=== PATIENT | male | born 1965 | race Caucasian/White ===

== ENCOUNTER 2017-01-30 14:00 | Emergency (ER) | payer MEDICAID ==
[~2017-01-30] VITALS: Ht 180.3 cm; Wt 78.5 kg
[2017-01-30 14:10] VITALS: Ht 180.3 cm; Wt 78.5 kg
[2017-01-30] MEDS ORDERED: predniSONE 20 MG TAB PO ONE (16:00)
[2017-01-30] MEDS ORDERED: ALBUTEROL 0.083% (NEB) 2.5 MG/3 ML AMP HHN STA (16:00)
[2017-01-30] MEDS ORDERED: ALBU18HF INHALATION (16:24)
[2017-01-30] MEDS ORDERED: PRED20TA PO (16:24)
--- NOTE | 2017-01-30 16:27 | ERD ---
ER Documentation Chief Complaint Date/Time DATE: 01/30/17 TIME: 16:25 Chief Complaint cough and sob has asthma has been using inhaler but is working HPI This 51-year-old male complains of wheezing for last 2 days and coughing. He is a history of asthma and is using his inhaler. He may have had a URI when symptoms began. He denies any fevers or productive mucus, chest pain, vomiting, abdominal pain. ROS All systems reviewed and are negative except as per history of present illness. Medications Home Meds Active Scripts Albuterol Sulfate* (Ventolin HFA*) 18 Gm Hfa.aer.ad, 2 PUFF INHALATION Q4H, #1 INHALER Prov:MIRANDA CORREA MD 01/30/17 Prednisone* (Prednisone*) 20 Mg Tab, 40 MG PO DAILY for 4 Days, TAB Start 01/31/2017 Prov:MIRANDA CORREA MD 01/30/17 Allergies Allergies: Coded Allergies: No Known Drug Allergies (Verified Allergy, 10/29/12) PMhx/Soc History of Surgery: No Anesthesia Reaction: No Hx Neurological Disorder: No Hx Respiratory Disorders: Yes (ASTHMA) Hx Cardiac Disorders: No Hx Psychiatric Problems: No Hx Miscellaneous Medical Probl: No Hx Alcohol Use: No Hx Substance Use: No Hx Tobacco Use: No Physical Exam Vitals Vital Signs Date Time Temp Pulse Resp B/P Pulse Ox O2 Delivery O2 Flow Rate FiO2 01/30/17 16:11 72 18 97 21 01/30/17 14:10 97.2 78 20 134/84 97 Physical Exam Const: [] Alert, not ill-appearing. Head: Atraumatic Eyes: Normal Conjunctiva ENT: Normal External Ears, Nose and Mouth. TMs and oropharynx normal. Neck: Full range of motion..~ No meningismus. Resp: Clear to auscultation bilaterally. Slight wheezy cough without significant wheeze at rest and no Rales or retractions. Cardio: Regular rate and rhythm, no murmurs Abd: Soft, non tender, non distended. Normal bowel sounds Skin: No petechiae or rashes Back: No midline or flank tenderness Ext: No cyanosis, or edema Neur: Awake and alert Psych: Normal Mood and Affect Results 24 hrs Current Medications Medications (Trade) Dose Ordered Sig/Mazin Route PRN Reason Start Time Stop Time Status Last Admin Dose Admin Prednisone (Prednisone) 60 mg ONCE ONCE PO 01/30/17 16:00 01/30/17 16:01 DC Albuterol (Proventil 0.083% (Neb)) 5 mg ONCE STAT HHN 01/30/17 16:00 01/30/17 16:01 DC 01/30/17 16:11 Procedures/MDM Patient is given albuterol 1 and prednisone 60 modems and mouth. Patient isn't URI symptoms in the setting of history of asthma without signs of hypoxemia, respiratory distress, signs of pneumonia, or additional complications. He'll be treated with a short course prednisone and continuation of albuterol.The patient was stable with no new complaints during the ER course. Clinically, there is no current evidence to suggest meningitis, sepsis, acute abdomen, pneumonia, acute coronary syndrome, pulmonary embolism, or any other emergent condition appearing to require further evaluation or hospitalization. The patient should certainly return for any new or worsening symptoms per the aftercare instructions. They should otherwise follow-up with her primary care doctor for reevaluation this week. Departure Diagnosis: Primary Impression: Asthma Asthma severity: unspecified severity Asthma complication type: uncomplicated Qualified Code: J45.909 - Uncomplicated asthma, unspecified asthma severity Condition: Stable Patient Instructions: Asthma, Acute (Adult) Additional Instructions: Recheck for new or worsening symptoms or with primary care doctor. MIRANDA CORREA MD January 30, 2017 16:26
== END 2017-01-30 17:25 | disposition home or self-care (01) ==
LOC: FTE 14:00
DX: J45.909 Unspecified asthma, uncomplicated (principal)
CPT/HCPCS: 94664; J7512; Z7502; Z7610

== ENCOUNTER 2018-09-13 07:45 | Emergency (ER) | payer BC, MEDICAID ==
[~2018-09-13] VITALS: Wt 78.1 kg
[~2018-09-13 07:45] MED LIST: ALBU18HF INHALATION; PRED20TA PO
--- NOTE | 2018-09-13 08:35 | ERD ---
ER Documentation Chief Complaint Chief Complaint Stiff neck, Shoulder pain, LH since last night HPI This is a 53-year-old male with a past medical history of asthma, diabetes, hypertension, hyperlipidemia who is presenting with concerns of neck pain with paresthesias radiating into the right shoulder/upper arm with lightheadedness, exacerbated by going from laying to sitting or sitting to standing. The patient endorses several months of neck discomfort for which he requires multiple pillows to go to sleep. However, this is the first time that he experienced a tingling sensation radiating into the shoulder which prevented him from sleeping last night. This was concerning to him and he wanted to seek assessment to make sure that he was not having a stroke. The patient's tingling started last night before going to sleep, approximately 10-12 hours ago. He has not had any dysarthria or a aphasia. He has no facial droop. He denies any weakness. His paresthesia stops in the upper arm. The patient has no numbness or tingling in the hands or lower extremities. The patient is ambulatory without issue. He is not dizzy. He does not feel that the room is spinning. The patient has had no headache or vision changes. The patient denies feeling sick recently. The patient denies fever or chills. The patient does not endorse neck or back pain. The patient denies lightheadedness or dizziness. The patient has had no chest pain or trouble breathing. The patient denies nausea or vomiting. The patient denies abdominal pain. The patient denies changes to bowel movements or urination. ROS All systems reviewed and are negative except as per history of present illness. Medications Home Meds Active Scripts Cyclobenzaprine Hcl* (Cyclobenzaprine Hcl*) 5 Mg Tablet, 5 MG PO Q8H PRN for MUSCLE SPASMS, #15 TAB Prov:VICKI PEARSON MD 09/13/18 Prednisone* (Prednisone*) 20 Mg Tab, 40 MG PO DAILY for 4 Days, TAB Prov:VICKI PEARSON MD 09/13/18 Ibuprofen* (Motrin*) 600 Mg Tab, 600 MG PO Q6H PRN for PAIN AND/OR INFLAMMATION, #30 TAB Prov:VICKI PEARSON MD 09/13/18 Reported Medications Aspirin* (Aspirin* Chew) 81 Mg Tab.chew, 81 MG PO DAILY, TAB.CHEW 09/13/18 Atorvastatin Calcium* (Atorvastatin Calcium*) 20 Mg Tablet, 20 MG PO QHS, #30 TAB 09/13/18 Metformin* (Glucophage*) 1,000 Mg Tablet, 1000 MG PO BID, #60 TAB 09/13/18 Discontinued Scripts Albuterol Sulfate* (Ventolin HFA*) 18 Gm Hfa.aer.ad, 2 PUFF INHALATION Q4H, #1 INHALER Prov:MIRANDA CORREA MD 01/30/17 Prednisone* (Prednisone*) 20 Mg Tab, 40 MG PO DAILY for 4 Days, TAB Start 01/31/2017 Prov:MIRANDA CORREA MD 01/30/17 Allergies Allergies: Coded Allergies: No Known Drug Allergies (Verified Allergy, Unknown, 09/13/18) PMhx/Soc History of Surgery: No Anesthesia Reaction: No Hx Neurological Disorder: No Hx Respiratory Disorders: Yes (ASTHMA) Hx Cardiac Disorders: Yes (Hypertension, hyperlipidemia) Hx Psychiatric Problems: Yes (Anxiety) Hx Miscellaneous Medical Probl: Yes (DM) Hx Alcohol Use: No Hx Substance Use: No Hx Tobacco Use: Yes Smoking Status: Former smoker FmHx Family History: diabetes Physical Exam Vitals Vital Signs Date Temp Pulse Resp B/P (MAP) Pulse Ox O2 O2 Flow FiO2 Time Delivery Rate 09/13/18 72 135/98 08:54 (110) 143/104 (117) 151/104 (120) 09/13/18 98.9 91 18 145/90 99 07:47 (108) Physical Exam Const: No apparent distress, well-developed, well-nourished Head: Normocephalic, Atraumatic Eyes: Normal Conjunctiva. Extraocular movements intact. Pupils equal, round and reactive to light ENT: Normal External Ears, Nose and Mouth. Neck: Full range of motion. No meningismus. Resp: Clear to auscultation bilaterally, No wheezes, rales or rhonchi Cardio: Regular rate and rhythm. No murmurs, rubs or gallops Abd: Soft, non tender, non distended. Normal bowel sounds Skin: No petechiae or rashes Back: No midline tenderness. No CVA tenderness Ext: No cyanosis, or edema Neur: Awake and alert, oriented 4. Cranial nerves intact. No facial droop. Normal strength, sensation and coordination. Psych: Normal Mood and Affect Result Diagram: 1/2/19 0837 09/13/18 0837 Results 24 hrs Laboratory Tests Test 09/13/18 08:29 09/13/18 08:37 Bedside Glucose 148 mg/dL White Blood Count 6.0 10^3/ul Red Blood Count 5.05 10^6/ul Hemoglobin 15.4 g/dl Hematocrit 45.3 % Mean Corpuscular Volume 89.7 fl Mean Corpuscular Hemoglobin 30.5 pg Mean Corpuscular Hemoglobin Concent 34.0 g/dl Red Cell Distribution Width 12.4 % Platelet Count 325 10^3/UL Mean Platelet Volume 10.2 fl Immature Granulocytes % 0.200 % Neutrophils % 65.8 % Lymphocytes % 24.8 % Monocytes % 6.5 % Eosinophils % 2.2 % Basophils % 0.5 % Nucleated Red Blood Cells % 0.0 /100WBC Immature Granulocytes # 0.010 10^3/ul Neutrophils # 4.0 10^3/ul Lymphocytes # 1.5 10^3/ul Monocytes # 0.4 10^3/ul Eosinophils # 0.1 10^3/ul Basophils # 0.0 10^3/ul Nucleated Red Blood Cells # 0.0 10^3/ul Sodium Level 141 mmol/L Potassium Level 4.1 mmol/L Chloride Level 100 mmol/L Carbon Dioxide Level 28 mmol/L Anion Gap 13 Blood Urea Nitrogen 19 mg/dl Creatinine 0.76 mg/dl Est Glomerular Filtrat Rate mL/min > 60 mL/min Glucose Level 173 mg/dl Calcium Level 10.1 mg/dl Troponin I < 0.012 ng/ml Procedures/MDM MDM The patient's presentation warrants further investigation. Previous medical records, if available, were reviewed. LABS The patient's laboratory testing was obtained and reviewed. No emergent treatment was required unless described below. CBC: No E/o of systemic infection or severe anemia or thrombocytopenia BMP: No E/o severe acidosis or alkalosis or renal failure or diabetic ketoacidosis Troponin: No E/o acute ischemia EKG EKG read by me: Rate/Rhythm: Regular rate and rhythm at a rate of 68 bpm Intervals: Normal [place]: Normal Impression: No evidence of acute ischemia or arrhythmia IMAGING Imaging and Radiology interpretation reviewed. CXR FINDINGS: The lungs are clear. The heart size is normal. There is no pleural e ffusion. There is no pneumothorax. IMPRESSION: Normal chest radiograph. Electronically viewed and signed by .Miranda Hebert MD, MD on 09/13/2018 08:54 CT Head FINDINGS: The ventricles and sulci are mildly prominent indicative of volume loss. There is no intracranial hemorrhage, mass effect or midline shift. No abnormal intra-axial or extra-axial fluid collections are seen. The trevizo/white matter differentiation is preserved. There are mild foci of hypoattenuation in the white matter, which are nonspecific in etiology but likely reflect chronic small vessel ischemic changes. There are mild intracranial vascular calcifications consistent with atherosclerosis. The visualized paranasal sin uses are essentially clear IMPRESSION: No acute intracranial hemorrhage, transcortical infarction or mass effect. Mild intracranial atherosclerosis and chronic small vessel ischemic changes. Mild generalized cerebral volume loss. Electronically viewed and signed by .Sergio Torres MD, on 09/13/2018 08:47 CT C-Spine FINDINGS: There is straightening of the alignment of the cervical spine with loss of the normal cervical lordosis. Alignment remains intact. No acute fracture or dislocation is seen. The vertebral body heights are preserved. No significant spinal canal or foraminal stenosis is noted. No mass, hematoma, or other soft tissue abnormality is seen. There are multilevel mild degenerative changes of the cervical spine, manifested by osteophytosis and disc height narrowing, most prominent at C5-C6 and C6-C7. Uncovertebral osteophytes and facet arthropathy result in multilevel foraminal stenosis: at C2-C3 moderate on the right, at C3-C4 mild on the right and severe on the left, at C4-C5 mild to moderate on the right and severe on the left, at C5-C6 moderate bilaterally, and at C6-C7 mild on the left. Posterior disc osteophyte complexes contribute to mild spinal canal narrowing at C3-C4 and C5-C6. IMPRESSION: Straightening of normal cervical lordosis. No acute fracture or traumatic subluxation. Multilevel mild degenerative changes of the cervical spine, most prominent at C5-C6 and C6-C7. Mild spinal canal narrowing at C3-C4 and C5-C6. Multilevel foraminal stenosis as outlined in details in findings. Electronically viewed and signed by .Sergio Torres MD, MD on 09/13/2018 08:50 TREATMENT/DISPOSITION The patient presents with neck pain radiating into the right shoulder and upper arm in addition to symptoms consistent with a near syncopal event. The p atient's symptoms are most consistent with a cervical radiculopathy. The patient CT of the cervical spine reveals degenerative disc disease with spinal canal narrowing at C5-C6 and C6-C7, which correlates with his dermatomal paresthesias. The patient has no objective focal deficits. The patient CT of the head was unremarkable. The neurologic exam is reassuring. I have decreased suspicion for cerebral ischemia. There was no trauma or injury. There is no personal or family history of cerebral aneurysm. I have decreased suspicion for SAH or other ICH. I have low suspicion for temporal arteritis, cavernous venous thrombosis, subdural hematoma, epidural hematoma, meningitis. I have low suspi cion for vascular injury. I suspect that the patient's lightheadedness is likely related to a vasovagal event due to his neck pain. The patient has a reassuring physical exam. The patient is not clinically orthostatic. The patient is not dizzy. I have decreased suspicion for vertigo. The patient has no signs of emergent or symptomatic anemia. The patient does not have any emergent electrolyte or metabolic emergencies. I have decrease suspicion for a thyroid disorder. The patient is not toxic appearing. I have decreased suspicion for an infectious etiology of symptoms. The patient's EKG and troponin are reassuring. I have low suspicion for acute coronary syndrome. I do not see evidence of any emergent cardiac arrhythmia, which includes but is not limited to heart block, Brugada syndrome or WPW. The patient has no heart murmurs or rales. There is no evidence of cardiomegaly on exam or chest xray. I have low suspicion for hypertrophic cardiomyopathy. I do not see evidence of CHF. The patient does not endorse any chest or pleuritic pain. The history is negative for bleeding or clotting disorders. The patient has not been involved in any recent prolonged trips or surgeries or hospit alizations. The patient has no calf tenderness or swelling. I have decreased suspicion for PE as the etiology of symptoms. The [place] Syncope Rule was applied and the patient was found to be low risk for a serious outcome. The patient was treated with Toradol and prednisone. Upon reevaluation of the patient, symptoms have improved. No emergent diagnoses were identified. At this time, I feel that the patient stable for discharge. The patient was instructed to follow-up with a primary care physician in 1-3 days. The patient will be given strict precautions with which to return to the emergency department. Prescriptions: Ibuprofen, Flexeril, prednisone The patient's blood pressure was elevated at greater than 120/80 while in the emergency department. The patient was otherwise stable with no evidence of hypertensive urgency or emergency. The patient does not require admission for blood pressure control. I have discussed with the patient the risks of hypertension. I have instructed the patient to return to the ER for any new or worsening symptoms including chest pain, shortness of breath, headache, blurred vision, confusion, nausea, vomiting or LOC. I have advised the patient to follow up with the primary care physician for outpatient monitoring and treatment for hypertension in 1-3 days. Disclaimer: Inadvertent spelling and grammatical errors are likely due to EHR/ dictation software use and do not reflect on the overall quality of patient care. Note that the electronic time recorded on this note does not necessarily reflect the actual time of the patient encounter. Departure Diagnosis: Primary Impression: Cervical radiculopathy Additional Impressions: Degenerative disc disease, cervical Paresthesia Near syncope Lightheadedness Condition: Stable VICKI PEARSON MD Sep 13, 2018 08:33
[2018-09-13] MEDS ORDERED: MTF1000T PO (08:50)
[2018-09-13] MEDS ORDERED: ATOR20TA38 PO (08:50)
[2018-09-13] MEDS ORDERED: ASPI-903 PO (08:51)
[2018-09-13] MEDS ORDERED: IBUP-1542 PO (09:10)
[2018-09-13] MEDS ORDERED: PRED20TA PO (09:10)
[2018-09-13] MEDS ORDERED: CYCL5TAB PO (09:10)
[2018-09-13] MEDS ORDERED: KETOROLAC 15 MG INJ IV STA (09:11)
[2018-09-13] MEDS ORDERED: predniSONE 20 MG TAB PO ONE (09:30)
[2018-09-13 09:37] VITALS: BP 129/87; PULSE 75; RESP 15
== END 2018-09-13 09:40 | disposition home or self-care (01) ==
LOC: FTE 07:45 → E/R 09:40
DX: M54.12 Radiculopathy, cervical region (principal); M50.30 Other cervical disc degeneration, unspecified cervical region; R20.2 Paresthesia of skin; R42 Dizziness and giddiness; R55 Syncope and collapse; E11.9 Type 2 diabetes mellitus without complications; I10 Essential (primary) hypertension; J45.909 Unspecified asthma, uncomplicated; Z87.891 Personal history of nicotine dependence; Z79.82 Long term (current) use of aspirin; Z79.84 Long term (current) use of oral hypoglycemic drugs
CPT/HCPCS: 36415; 70450; 71045; 72125; 80048; 82962; 84484; 85025; 93005; 96374; 99285; J1885; J7512